=== PATIENT | female | born 2000 | race Caucasian/White ===

== ENCOUNTER 2021-01-02 16:50 | Emergency (ER) | payer BC, SELFPAY ==
[2021-01-02 16:52] VITALS: BP 127/78; PULSE 95; RESP 16; TEMP 36; O2SAT 100
--- NOTE | 2021-01-02 17:11 | ED.GENADULT ---
HPI - General Adult General Chief complaint: Abdominal Pain <iGgi Byers PA-C - Last Filed: 01/02/21 18:58> Stated complaint: pelvic pain <Gigi Byers PA-C - Last Filed: 01/02/21 18:58> Time Seen by Provider: 01/02/21 17:05 <Gigi Byers PA-C - Last Filed: 01/02/21 18:58> Source: patient <Gigi Byers PA-C - Last Filed: 01/02/21 18:58> Mode of arrival: ambulatory <Gigi Byers PA-C - Last Filed: 01/02/21 18:58> Limitations: no limitations <Gigi Byers PA-C - Last Filed: 01/02/21 18:58> History of Present Illness HPI narrative: Patient is a 20-year-old female who presents with postcoital pain noting sharp pain in the pelvic region that radiates posteriorly patient notes she had had a similar occurrence in the past that resolved patient denies any discharge bleeding fever chills nausea vomiting or other complaints presents in no distress has not taken anything for her symptoms does not have gynecology <Gigi Byers PA-C - Last Filed: 01/02/21 18:58> Related Data Allergies/adverse reactions: Allergies Allergy/AdvReac Type Severity Reaction Status Date / Time No Known Allergies Allergy Mild Verified 12/16/19 11:24 <Gigi Byers PA-C - Last Filed: 01/02/21 18:58> Review of Systems Review of Systems: All systems reviewed & are unremarkable except as noted in HPI and below <Gigi Byers PA-C - Last Filed: 01/02/21 18:58> [facility] Social History Social History: Social History (Updated 01/02/21 @ 17:12 by Gigi Byers PA-C) Smoking status: Never smoker <Gigi Byers PA-C - Last Filed: 01/02/21 18:58> Exam Narrative: Exam Narrative: GENERAL: Well-appearing, well-nourished, and in no acute distress. HEAD: Normocephalic, atraumatic. EYES: PERRLA and EOMI. ENT: Nares clear, no rhinorrhea or epistaxis. Mucous membranes moist. CHEST: Clear to auscultation. No respiratory distress. No wheezes rales or rhonchi HEART: Regular rate and rhythm. No murmur heard. Normal peripheral pulses. ABDOMEN: Soft, suprapubic tenderness to palpation, nondistended FEMALE GENITOURINARY: Small amount of old blood in the vault no other abnormalities EXTREMITIES: Normal range of motion. No edema. SKIN: Warm, dry, no rash. NEURO: No focal deficits. Alert and oriented x3. PSYCH: Normal mood and affect. <Gigi Byers PA-C - Last Filed: 01/02/21 18:58> Course Course Emergency Course: Patient in the room no distress no high risk changes in the evaluation will be treated for urinary tract infection patient will be following with gynecology and given reasons to return is felt appropriate for outpatient reevaluation <Gigi Byers PA-C - Last Filed: 01/02/21 18:58> Vital Signs Vital signs: Vital Signs Temperature 96.8 F L 01/02/21 16:52 Pulse Rate 95 01/02/21 16:52 Respiratory Rate 16 01/02/21 16:52 Blood Pressure 127/78 01/02/21 16:52 Pulse Oximetry 100 01/02/21 16:52 Temperature 97.3 F L 01/02/21 19:12 Pulse Rate 89 01/02/21 19:12 Respiratory Rate 19 01/02/21 19:12 Blood Pressure 97/69 L 01/02/21 19:12 Pulse Oximetry 100 01/02/21 19:12 <Gigi Byers PA-C - Last Filed: 01/02/21 18:58> Vital Signs Temperature 96.8 F L 01/02/21 16:52 Pulse Rate 95 01/02/21 16:52 Respiratory Rate 16 01/02/21 16:52 Blood Pressure 127/78 01/02/21 16:52 Pulse Oximetry 100 01/02/21 16:52 Temperature 97.3 F L 01/02/21 19:12 Pulse Rate 89 01/02/21 19:12 Respiratory Rate 19 01/02/21 19:12 Blood Pressure 97/69 L 01/02/21 19:12 Pulse Oximetry 100 01/02/21 19:12 <Mag Swain MD - Last Filed: 01/03/21 09:55> Medical Decision Making MDM Narrative Medical decision making narrative: Patient will follow with gynecology felt appropriate for outpatient reevaluation vaginal cultures were obtained patient will be treated for urinary tract infection and
[2021-01-02 17:35] LABS: Add Urine Microscopic? YES; Appearance Urine Turbid (Clear); Bacteria Urine Trace /hpf; Bilirubin Urine Negative (Negative); Blood Urine 1+ (Negative); Color Urine Yellow (Yellow); Glucose Urine UA Negative (Negative); Ketones Urine Negative (Negative); Leukocyte Esterase Ur Negative LEU/UL (Negative); Mucus Urine Rare /lpf; Nitrate Urine Negative (Negative); Protein Urine 1+ mg/dL (Negative); RBC Urine 0-2 /hpf (0-2); Specific Grav Ur 1.023 (1.001-1.035); Squamous Epithelial Cell Urine Many /hpf (Few); Urobilinogen Urine Negative mg/dL (<2.0); WBC Clumps Urine Present /HPF; WBC Urine 31-50 /hpf
[2021-01-02 19:12] VITALS: BP 97/69; PULSE 89; RESP 19; TEMP 36.3; O2SAT 100
== END 2021-01-02 19:14 | disposition home or self-care (01) ==
PROVIDERS: Emergency Medicine Emergency Medical Services; Emergency Provider General Practice
DX: N39.0 Urinary tract infection, site not specified (principal); R10.9 Unspecified abdominal pain
CPT/HCPCS: 81001; 81025; 87070; 87086; 87088; 87491; 87591; 99283

== ENCOUNTER 2022-04-02 00:23 | Emergency (ER) | payer BC, SELFPAY ==
[2022-04-02 00:26] VITALS: BP 130/79; PULSE 109; RESP 14; TEMP 36.3; O2SAT 100
[2022-04-02 00:44] LABS: Basophils Absolute Auto 0.1 K/mm3 (0.0-0.1); Basophils Percent Auto 0.9 % (0.2-1.2); Eosinophils Absolute Auto 0.2 K/mm3 (0-0.3); Eosinophils Percent Auto 2.2 % (0-4.4); Hematocrit 37.9 % (37.0-47.0); Hemoglobin 11.8 g/dL (12.0-15.0); Immature Granulocyte Absolute 0.02 K/mm3 (0.00-0.031); Immature Granulocyte Percent A 0.3 % (0-0.5); Lymphocytes Absolute Auto 2.53 K/mm3 (0.9-3.2); Lymphocytes Percent Auto 34.3 % (18.3-44.2); Mean Corpuscular HGB Conc 31.1 g/dl (32-36); Mean Corpuscular Hemoglobin 26.5 pg (26-34); Mean Corpuscular Volume 85.2 fl (80-100); Mean Platelet Volume 9.7 fl (7.4-10.4); Monocytes Absolute Auto 0.5 K/mm3 (0.1-0.6); Monocytes Percent Auto 7.3 % (2.6-8.5); Neutrophils Absolute Auto 4.1 K/mm3 (1.3-6.7); Platelet Count Result 300 k/mm3 (150-375); Red Blood Count 4.45 M/mm3 (4.2-5.4); Red Cell Distribution Width 15.6 % (11.5-14.5); White Blood Count 7.4 K/mm3 (4.5-10.0)
[2022-04-02 00:56] LABS: Amorphous Sediment Urine Few; Squamous Epithelial Cell Urine Occasional /hpf (Few); WBC Urine 31-50 /hpf
[2022-04-02 00:56] LABS: Alanine Aminotransferase 22 U/L (6-35); Albumin Level 4.9 g/dL (3.5-5.1); Alkaline Phosphatase 38 U/L (38-126); Anion Gap 10 mmol/L (8-16); Aspartate Amino Transferase 35 U/L (14-36); Bilirubin,Total 0.3 mg/dL (0.2-1.3); Blood Urea Nitrogen 13 mg/dL (7-17); Carbon Dioxide 27 mmol/L (22-30); Chloride 103 mmol/L (98-107); Estimated CRCL calculation 91 ml/min; Estimated Glomerular Filt Rate > 60; Glucose 89 mg/dL (65-110); Lipase 109 U/L (23-300); Potassium 3.8 mmol/L (3.4-5.0); Sodium 140 mmol/L (137-145)
[2022-04-02 00:58] LABS: Add Urine Microscopic? YES; Appearance Urine Cloudy (Clear); Bilirubin Urine Negative (Negative); Blood Urine Trace-Intact (Negative); Color Urine Light Yellow (Yellow); Glucose Urine UA Negative (Negative); Ketones Urine Negative (Negative); Leukocyte Esterase Ur Trace LEU/UL (Negative); Nitrate Urine Negative (Negative); Protein Urine Negative (Negative); Urobilinogen Urine 0.2 mg/dL (<2.0); pH Urine 8.5 (5.0-9.0)
[2022-04-02 03:20] VITALS: BP 124/74; PULSE 93; RESP 16; O2SAT 100
[2022-04-02 03:21] VITALS: PULSE 90; RESP 14; O2SAT 100
--- NOTE | 2022-04-02 03:24 | ED.FEMALEGU ---
HPI - Female Genitourinary General Chief complaint: Abdominal Pain Stated complaint: abdominal pain Time Seen by Provider: 04/02/22 03:22 History of Present Illness HPI Narrative: 21-year-old female with had a UTI in the past presents here with suprapubic pain for the last few hours, denies any dysuria, flank pain, fevers or chills, does endorse nausea. Related Data Allergies Allergy/AdvReac Type Severity Reaction Status Date / Time No Known Allergies Allergy Mild Verified 04/02/22 03:37 Review of Systems Review of Systems: CONST: No fever. HEENT: No sore throat C/V: No chest pain RESP: No cough GI: Reports abdominal pain, nausea : No dysuria. M/S: No joint pain. SKIN: No rash. NEURO: [No focal numbness or weakness] PSYCH: [No depression] [facility] Past Medical History Medical History UTI (urinary tract infection) Social History Social History Smoking status: Never smoker Exam Narrative: EXAMINATION OF ORGAN SYSTEMS/BODY AREAS: Constitutional: Vital signs per nursing GENERAL:[No acute distress, non-toxic appearing.] HEAD: Normal with no signs of head trauma. EYES: EOMI, conjunctiva normal ENT: Hearing grossly intact LUNGS: Nonlabored breathing. HEART: [Regular rate and rhythm] ABD: [Soft], [tender to palpation suprapubic, no CVA tenderness] EXT: Normal range of motion SKIN: [No rashes or lesions.] NEURO: [Alert and oriented x 3. No gross focal sensory or strength deficits.] PSYCH: Normal affect Course Course Emergency Course: 21-year-old female presents with suprapubic pain, vital signs stable, exam shows some Suprapubic tenderness without flank pain, labs show large amount of WBCs in urine consistent with UTI, patient is well-appearing without systemic symptoms and I will start her on Macrobid for cystitis. Return precautions provided and patient stable for discharge home. Vital Signs Vital signs: Vital Signs Temperature 97.3 F L 04/02/22 00:26 Pulse Rate 109 H 04/02/22 00:26 Respiratory Rate 14 04/02/22 00:26 Blood Pressure 130/79 04/02/22 00:26 Pulse Oximetry 100 04/02/22 00:26 Temperature 97.3 F L 04/02/22 00:26 Pulse Rate 84 04/02/22 03:31 Respiratory Rate 14 04/02/22 03:21 Blood Pressure 114/72 04/02/22 03:30 Pulse Oximetry 100 04/02/22 03:31 MDM - Female Genitourinary Lab Data Result diagrams: 04/02/22 00:37 04/02/22 00:37 Labs: Lab Results 04/02/22 04/02/22 04/02/22 Range/Units 00:35 00:37 00:37 WBC 7.4 (4.5-10.0) K/mm3 RBC 4.45 (4.2-5.4) M/mm3 Hgb 11.8 L (12.0-15.0) g/dL Hct 37.9 (37.0-47.0) % MCV 85.2 (80-100) fl MCH 26.5 (26-34) pg MCHC 31.1 L (32-36) g/dl RDW 15.6 H (11.5-14.5) % Plt Count 300 (150-375) k/mm3 MPV 9.7 (7.4-10.4) fl Immature Gran % (Auto) 0.3 (0-0.5) % Neut % (Auto) 55.0 (45.5-73.1) % Lymph % (Auto) 34.3 (18.3-44.2) % Hart % (Auto) 7.3 (2.6-8.5) % Eos % (Auto) 2.2 (0-4.4) % Baso % (Auto) 0.9 (0.2-1.2) % Lymph # (Auto) 2.53 (0.9-3.2) K/mm3 Hart # (Auto) 0.5 (0.1-0.6) K/mm3 Eos # (Auto) 0.2 (0-0.3) K/mm3 Baso # (Auto) 0.1 (0.0-0.1) K/mm3 Abs Immat Gran (auto) 0.02 (0.00-0.031) K/mm3 Absolute Neuts (auto) 4.1 (1.3-6.7) K/mm3 Absolute Nucleated RBC 0.0 (0.0-0.012) K/mm3 Nucleated RBC % 0.0 (0.0-0.2) % Sodium 140 (137-145) mmol/L Potassium 3.8 (3.4-5.0) mmol/L Chloride 103 (98-107) mmol/L Carbon Dioxide 27 (22-30) mmol/L Anion Gap 10 (8-16) mmol/L BUN 13 (7-17) mg/dL Creatinine 0.60 L (0.7-1.0) mg/dL Estim Creat Clear Calc 91 ml/min Estimated GFR > 60 (59 - ) Glucose 89 (65-110) mg/dL Calcium 9.0 (8.4-10.2) mg/dL Total Bilirubin 0.3 (0.2-1.3) mg/dL AST 35 (14-36) U/L ALT 22 (6-35) U/L Alkaline Phosphatase 3
[2022-04-02 03:30] VITALS: BP 114/72; PULSE 85; O2SAT 100
[2022-04-02 03:31] VITALS: PULSE 84; O2SAT 100
[2022-04-02] MEDS: ONDANSETRON HCL ODT 4 MG TABLET PO (03:37)
[2022-04-02 03:58] VITALS: BP 117/70; PULSE 107; RESP 20; TEMP 36.9; O2SAT 100
[2022-04-02] MEDS: NITROFURANTOIN MONOHYD MACROCR 100 MG CAP PO (03:58)
== END 2022-04-02 04:27 | disposition home or self-care (01) ==
PROVIDERS: Emergency Provider Emergency Medicine
DX: N30.01 Acute cystitis with hematuria (principal)
CPT/HCPCS: 36415; 80053; 81001; 81025; 83690; 85025; 87086; 87088; 99283; A9270

== ENCOUNTER 2022-06-22 12:00 | Outpatient (CLI) | payer BC, OTHER, SELFPAY ==
[2022-06-22 12:38] LABS: Basophils Percent Auto 0.6 % (0.2-1.2); Eosinophils Absolute Auto 0.1 K/mm3 (0-0.3); Eosinophils Percent Auto 1.7 % (0-4.4); Hematocrit 35.8 % (37.0-47.0); Hemoglobin 11.3 g/dL (12.0-15.0); Immature Granulocyte Absolute 0.02 K/mm3 (0.00-0.031); Immature Granulocyte Percent A 0.3 % (0-0.5); Lymphocytes Absolute Auto 1.28 K/mm3 (0.9-3.2); Lymphocytes Percent Auto 20.2 % (18.3-44.2); Mean Corpuscular HGB Conc 31.6 g/dl (32-36); Mean Corpuscular Hemoglobin 27.2 pg (26-34); Mean Corpuscular Volume 86.1 fl (80-100); Mean Platelet Volume 9.7 fl (7.4-10.4); Monocytes Absolute Auto 0.4 K/mm3 (0.1-0.6); Neutrophils Absolute Auto 4.4 K/mm3 (1.3-6.7); Neutrophils Percent Auto 70.2 % (45.5-73.1); Platelet Count Result 263 k/mm3 (150-375); Red Blood Count 4.16 M/mm3 (4.2-5.4); Red Cell Distribution Width 15.2 % (11.5-14.5); White Blood Count 6.3 K/mm3 (4.5-10.0)
[2022-06-22 13:32] LABS: HIV 1/2 Ab P24 Ag Result Negative (Negative)
[2022-06-22 13:57] LABS: Hepatitis B Surface Antigen Negative (Negative)
[2022-06-22 16:23] LABS: Rapid Plasma Reagin Non-Reactive (NonReactive)
[2022-06-24 11:24] LABS: CMV IgG Antibody <0.60 U/mL (<0.60)
[2022-06-25 14:54] LABS: Varicella IgG Antibody <135.00 Index (>=165.00)
== END 2022-06-22 12:01 | disposition home or self-care (01) ==
PROVIDERS: Visit Provider Obstetrics & Gynecology
DX: N94.89 Other specified conditions associated with female genital organs and menstrual cycle (principal)
CPT/HCPCS: 36415; 84702; 85025; 86592; 86644; 86703; 86747; 86787; 86850; 86900; 86901; 87086; 87340; G0432

== ENCOUNTER 2022-10-19 08:38 | Outpatient (CLI) | payer BC, OTHER, SELFPAY ==
[2022-10-19 11:03] LABS: Basophils Percent Auto 0.3 % (0.2-1.2); Eosinophils Absolute Auto 0.1 K/mm3 (0-0.3); Hematocrit 31.7 % (37.0-47.0); Hemoglobin 10.2 g/dL (12.0-15.0); Immature Granulocyte Absolute 0.04 K/mm3 (0.00-0.031); Immature Granulocyte Percent A 0.5 % (0-0.5); Lymphocytes Absolute Auto 1.02 K/mm3 (0.9-3.2); Lymphocytes Percent Auto 12.8 % (18.3-44.2); Mean Corpuscular HGB Conc 32.2 g/dl (32-36); Mean Corpuscular Hemoglobin 27.2 pg (26-34); Mean Corpuscular Volume 84.5 fl (80-100); Mean Platelet Volume 9.3 fl (7.4-10.4); Monocytes Absolute Auto 0.4 K/mm3 (0.1-0.6); Monocytes Percent Auto 4.7 % (2.6-8.5); Neutrophils Absolute Auto 6.4 K/mm3 (1.3-6.7); Neutrophils Percent Auto 80.7 % (45.5-73.1); Platelet Count Result 254 k/mm3 (150-375); Red Blood Count 3.75 M/mm3 (4.2-5.4); Red Cell Distribution Width 13.8 % (11.5-14.5); White Blood Count 7.9 K/mm3 (4.5-10.0)
[2022-10-19 11:05] LABS: Glucose 1 Hour PP 50gm Dose 95 mg/dL
== END 2022-10-19 08:39 | disposition home or self-care (01) ==
LOC: ANHLAB 08:41
PROVIDERS: Visit Provider Obstetrics & Gynecology
DX: Z34.90 Encounter for supervision of normal pregnancy, unspecified, unspecified trimester (principal); Z3A.00 Weeks of gestation of pregnancy not specified
CPT/HCPCS: 36415; 82947; 85025

== ENCOUNTER 2022-11-01 16:19 | Outpatient (RCR) | payer BC, OTHER, SELFPAY ==
[2022-11-01 17:13] LABS: Alanine Aminotransferase 14 U/L (6-35); Albumin Level 3.8 g/dL (3.5-5.1); Alkaline Phosphatase 84 U/L (38-126); Anion Gap 5 mmol/L (8-16); Aspartate Amino Transferase 26 U/L (14-36); Bilirubin,Total 0.3 mg/dL (0.2-1.3); Blood Urea Nitrogen 9 mg/dL (7-17); Calcium 8.1 mg/dL (8.4-10.2); Carbon Dioxide 26 mmol/L (22-30); Chloride 99 mmol/L (98-107); Estimated Glomerular Filt Rate > 60; Glucose 119 mg/dL (65-110); Potassium 3.1 mmol/L (3.4-5.0); Sodium 130 mmol/L (137-145)
[2022-11-08 19:41] LABS: Chenodeoxycholic Acid 0.6 umol/L (< OR = 3.9); Cholic Acid <0.5 umol/L (< OR = 2.8); Deoxycholic Acid 1.6 umol/L (< OR = 2.3); Total Bile Acids 2.3 umol/L (< OR = 8.3)
== END 2023-01-30 23:59 | disposition home or self-care (01) ==
LOC: ANHOBOP 16:19
PROVIDERS: Visit Provider Obstetrics & Gynecology
DX: O36.8130 Decreased fetal movements, third trimester, not applicable or unspecified (principal); Z3A.30 30 weeks gestation of pregnancy
CPT/HCPCS: 36415; 59025; 80053; 82542

== ENCOUNTER 2022-12-13 15:23 | Outpatient (CLI) | payer BC, OTHER, SELFPAY ==
[2022-12-13 18:52] LABS: Rubella IgG Antibody 13.4 IU/ML
== END 2022-12-13 15:24 | disposition home or self-care (01) ==
LOC: ANHLAB 15:24
PROVIDERS: Visit Provider Student in an Organized Health Care Education/Training Program
DX: Z34.90 Encounter for supervision of normal pregnancy, unspecified, unspecified trimester (principal)
CPT/HCPCS: 36415; 86762

== ENCOUNTER 2023-01-06 23:41 | Inpatient (IN) | payer BC, OTHER, SELFPAY ==
[2023-01-07] VITALS (225 sets, daily range): BP systolic 102–136; BP diastolic 40–109; PULSE 71–202; RESP 16–18; TEMP 36.7–37.3; O2SAT 84–100; BMI 21.5
[2023-01-07] MEDS: ONDANSETRON INJ 4 MG/2 ML VIAL IV PUSH (03:30)
[2023-01-07] MEDS: LACTATED RINGERS 1,000 ML 125 ML IV CONT ×3 (03:30→06:33)
[2023-01-07] MEDS: fentaNYL CITRATE INJ (*CRX) 100 MCG/2 ML VIAL IV PUSH ×2 (03:35→04:33)
[2023-01-07 03:52] LABS: Basophils Percent Auto 0.3 % (0.2-1.2); Eosinophils Percent Auto 0.1 % (0-4.4); Hematocrit 28.6 % (37.0-47.0); Hemoglobin 8.9 g/dL (12.0-15.0); Immature Granulocyte Absolute 0.04 K/mm3 (0.00-0.031); Immature Granulocyte Percent A 0.4 % (0-0.5); Lymphocytes Absolute Auto 0.96 K/mm3 (0.9-3.2); Lymphocytes Percent Auto 9.6 % (18.3-44.2); Mean Corpuscular HGB Conc 31.1 g/dl (32-36); Mean Corpuscular Hemoglobin 23.8 pg (26-34); Mean Corpuscular Volume 76.5 fl (80-100); Monocytes Absolute Auto 0.4 K/mm3 (0.1-0.6); Monocytes Percent Auto 3.6 % (2.6-8.5); Neutrophils Absolute Auto 8.6 K/mm3 (1.3-6.7); Platelet Count Result 235 k/mm3 (150-375); Red Blood Count 3.74 M/mm3 (4.2-5.4); Red Cell Distribution Width 14.8 % (11.5-14.5)
--- NOTE | 2023-01-07 04:00 | LDADM ---
This patient, Summer Ibrahim, was admitted to Labor/Delivery/Recovery 104 on 01/06/23 at 23:41. Plans for labor, pain management and were discussed with patient. Patient/family oriented to hospital policies and general routines including ID bracelet, bed and alarms, visiting hours, pain management, procedures, bathroom and other care routines, personal items, smoking policy, room service/diet and guest tray routines, infant security routines, and visiting hours. Patient/Family are encouraged to report perceived risks to care and to ask questions if they do not understand what they are told or what they should do. See [facility]BI[facility] for further documentation.
--- NOTE | 2023-01-07 05:03 | WPDANESEPN ---
Anes - Epidural Procedure Note Date/Time: 01/07/23 05:03 Consent: I have discussed with the patient/family/POA, the placement of an epidural catheter and the use of epidural narcotic/local anesthetic for labor analgesia and/or postoperative pain management, including associated potential risks, benefits, complications and side effects. I have discussed alternative methods of labor analgesia and/or postoperative pain management. The patient/family/POA, understand(s) and wish(es) to proceed with epidural narcotic/local anesthetic for labor analgesia and/or postoperative pain management. Time-Out: A pre-procedural Time-Out was completed immediately before starting the procedure and confirmed: Patient Identification, Site, Procedure, Patient Position and the Availability of Requisite Equipment. Clinical Indications: Labor pain Epidural Insertion Note Patient position: sitting Skin prep: chlorhexidine and sterile drape Needle: 17g Tuohy Catheter: 20g Unstyleted Technique: Loss of resistance. Level of insertion: L3/4 Catheter skin deonna (cm): 3 Length in epidural space (cm): 8 Skin anesthesia: lidocaine 1% Test dose: 1.5% Lidocaine with [id number] Epi, negative for subarachnoid Inj and negative for intravascular Inj Time of test dose: 04:45 Observations: tolerated well Complications: none
--- NOTE | 2023-01-07 10:06 | WPDOBADMIT ---
Obstetrics - Admit Note Admission Note: record reviewed. No pertinent additions to the history and/or any subsequent changes in the physical findings that are not consistent with the expected course of the were found. Additions to the history and/or subsequent changes in the physical findings follow. None.
--- NOTE | 2023-01-07 10:24 | PM.OBPNLAB ---
Pain Control Date/time seen: 01/07/23 10:15 Pain control: tolerating well and epidural Pelvic Exam Dilation (cm): 10 Effacement (%): 100 station: 0 Amniotic membrane status: Bulging Contractions Monitor mode: External Contraction pattern: Regular Contraction intensity: Strong/Firm Status status: Category ll Comments: Reassured by moderate variability and accelerations Assessment and Plan Comments: CNM to bedside. Discussed plan of care an option for amniotomy. Discussed risks, benefits, and expectations of breaking water. Patient is agreeable. Amniotomy performed and there was a moderate return of clear amniotic fluid. Patient tolerated procedure well.
--- NOTE | 2023-01-07 11:18 | PM.OBPRVD ---
OB - Delivery Note Procedure Delivery date: 01/07/23 Procedure: Induction method: None Delivery augmentation: Rupture of Membranes Delivery monitor: External FHT and External Uterine Route of delivery: Episiotomy description: None Laceration Description: Vaginal (1st degree, right vaginal wall) and Superficial Delivery repair: vicryl Specimen: No Quantitative Blood Loss (ml): 250 Anesthesia type: Epidural Disposition: Floor Narrative: Patient presented in spontaneous labor. Made quick change to complete dilation. She began pushing with contractions and quickly brought the head to a crown. After the delivery of the head there was excellent restitution and remainder of the infant was easily delivered. A very loose nuchal cord was noted. After 1 minute of life the cord was doubly clamped and cut. A cord segment and cord blood was obtained. A first-degree right vaginal wall laceration was repaired in the usual fashion. There was excellent hemostasis and all delivery counts were correct. [place] Baby Date of : 01/07/23 Time of : 11:50 Weeks of gestation at delivery: 38 Infant gender: Male Weight (pounds): 6 Weight (ounces): 2 presentation: vertex position: Left Occiput Anterior Placenta delivery description: Spontaneous Cord Vessel Description: 3 Vessels, Nuchal Cord, Loose, Clamped/Cut and Delayed Cord Clamping score one minute: 6 score five minutes: 9
--- NOTE | 2023-01-07 11:18 | PM.OBDSVD ---
DS: Admitting Diagnosis Discharge Date 01/09/23 Admitting Diagnosis Spontaneous labor at term DS: Discharge Diagnosis Discharge Diagnosis (1) (normal spontaneous vaginal delivery): Code(s): O80 - Encounter for full-term uncomplicated delivery Status: Acute (2) Patient is a currently breast-feeding mother: Code(s): Z39.1 - Encounter for care and examination of lactating mother Status: Acute OB - DS: Summary Hospital Course Hospital Course: Uncomplicated OB Procedures : Ultrasound OB Procedures Intrapartum: Spontaneous Vag Delivery OB Procedures: : None Peripartum Data Infant Delivery Method: Natural Vaginal Laceration Description: Vaginal - 1st Degree and Superficial Episiotomy description: None complications: none Status at Discharge Overall status at discharge: patient is progressing back to baseline Time Spent with Patient Time attestation: Total time spent providing and/or coordinating discharge services: DS: Data Data Completed and Pending Labs on day of discharge: Labs from last 24 hours 01/07/23 01/07/23 01/07/23 03:39 03:39 03:39 WBC 10.0 RBC 3.74 L Hgb 8.9 L Hct 28.6 L MCV 76.5 L MCH 23.8 L MCHC 31.1 L RDW 14.8 H Plt Count 235 MPV 11.0 H Immature Gran % (Auto) 0.4 Neut % (Auto) 86.0 H Lymph % (Auto) 9.6 L Barry % (Auto) 3.6 Eos % (Auto) 0.1 Baso % (Auto) 0.3 Lymph # (Auto) 0.96 Barry # (Auto) 0.4 Eos # (Auto) 0.0 Baso # (Auto) 0.0 Abs Immat Gran (auto) 0.04 H Absolute Neuts (auto) 8.6 H Absolute Nucleated RBC 0.0 Nucleated RBC % 0.0 RPR Pending Blood Type A Positive Antibody Screen Negative Discharge Plan Discharge Attending physician on discharge: Remington Escalante Discharging Clinician: Remington Escalante Anticipated Discharge Date/Time: 01/09/23 12:19 Patient Disposition: Home, Self-Care Activity: may shower Diet: as tolerated and regular Discharge Instructions: Continue taking your vitamin and any other supplements as previously directed (Examples: Iron, Vitamin D). You may take Tylenol 1000mg over the counter every 6 hours as needed for pain. Do not exceed 4000mg of Tylenol daily. You may continue using tucks pads and dermoplast spray if needed for a few more days. Education: Mom and Baby Guide Given to: Mother Follow-Up: Call your delivering provider's office for an appointment to be seen in: call for appointment Mom and baby [facility] for the follow-up appointment. Appointment Date/Time: January 11, 2023 at 11:00 am What to expect at your follow-up visit: Physical Assessment Call [phone] if you are unable to keep your appointment time. BREAST CARE: * Wear a snug supportive bra. * For engorgement discomfort: Breast Feeding: * Apply warm moist washcloths * Express milk as needed to relieve engorgement * Wear loose clothing * For sore nipples: * Identify correct latch-on * Apply warm moist washcloths before and after nursing * Air dry nipples after nursing * May apply Lansinoh cream to nipples EPISIOTOMY/PERINEAL CARE: * Until bleeding stops, use your kavon bottle after urinating * Change your pad frequently throughout the day * You may take sitz baths several times a day (fill your bathtub with warm water and soak for 20 minutes.) Do NOT bathe in the water * No tub baths until seen by your physician - You may shower ACTIVITY: * Rest as much as possible. * Do not exercise or lift anything heavier than your baby (such as laundry or other children.) * Avoid stairs or driving as much as possible. * Do not put anything into the vagina. No douching, tampons, or sexual activity until seen by physician. NOTIFY PHYSICIAN IF YOU HAVE ANY QUESTIONS OR IF ANY OF THE FOLLOWING SYMPTOMS OC
[2023-01-07] MEDS: OXYTOCIN 30 UNITS/NS 500 ML 30 UNITS/500 ML BAG 125 UNITS IV CONT (13:15)
[2023-01-07] MEDS: WITCH HAZEL 40 PADS 1 PAD TOPICAL (14:16)
[2023-01-07] MEDS: BENZOCAINE 20% AER SPR (*SP) 56 GM CAN 1 SPRAY TOPICAL (14:16)
--- NOTE | 2023-01-07 14:43 | PC.NURSE ---
Patient transferred to post room # 284 via wheelchair accompanied by support person. PT introductions made and plan of care discussed per post , pain management, daily care activities and breast feeding. PT Oriented to unit, room, information board, rooming in, admission packet and security measures. PT and spouse both recipients of such care and no barriers to learning identified at this time. PT received such instructions per one to one discussion, mom baby care guide and demonstrations. Patient verbalizes understanding.
[2023-01-07] MEDS: ACETAMINOPHEN 325 MG TABLET 650 MG PO (15:40)
[2023-01-07] MEDS: DOCUSATE SODIUM 100 MG CAPSULE PO (15:40)
[2023-01-07] MEDS: IBUPROFEN 600 MG TABLET PO (15:41)
[2023-01-08 04:20] VITALS: BP 137/75; PULSE 78; RESP 18; TEMP 36.6; O2SAT 97
[2023-01-08] MEDS: ACETAMINOPHEN 325 MG TABLET 650 MG PO ×3 (04:26→16:56)
[2023-01-08 05:12] LABS: Hematocrit 25.4 % (37.0-47.0); Hemoglobin 7.7 g/dL (12.0-15.0)
--- NOTE | 2023-01-08 07:00 | PC.NURSE ---
PT introductions made and plan of care discussed per post , pain management, breast feeding, daily care activities. PT and fob both recipients of such instructions and no barriers to learning identified at this time. Pt received such instructions per one to one discussion , mom baby care guide and demonstrations this shift. PT verbalized understanding of such care.
--- NOTE | 2023-01-08 08:18 | PM.OBPNVD ---
OB - PN: Subj Subjective Date/time seen: 01/08/23 08:18 Patient comments: no complaints and pain well controlled baby status: doing well OB - PN: Obj Data Labs 01/08/23 04:24 Labs: Laboratory Results - last 24 hr 01/08/23 04:24 Hgb 7.7 L Hct 25.4 L OB - PN A/P Plan day: 1 Plan: routine care Time Spent With Patient Time: Total time spent is greater than 50% in coordination of care (as documented) at patient's floor/unit and/or counseling patient:
[2023-01-08] MEDS: MULTIVIT/MIN/PREN/FOL AC/IRON TABLET 1 TAB PO (09:00)
[2023-01-08 10:30] VITALS: BP 117/78; PULSE 87; RESP 18; TEMP 36.7; O2SAT 100
[2023-01-08] MEDS: IBUPROFEN 600 MG TABLET PO ×2 (10:36→16:56)
[2023-01-08] MEDS: POLYSACCHARIDE IRON COMPLEX 150 MG CAPSULE PO ×2 (10:36→16:57)
[2023-01-08] MEDS: DOCUSATE SODIUM 100 MG CAPSULE PO ×2 (10:36→16:57)
[2023-01-08 20:13] VITALS: BP 119/74; PULSE 86; PULSE 87; RESP 18; TEMP 36.9; O2SAT 100; O2SAT 86
[2023-01-08] MEDS: ESCITALOPRAM OXALATE 5 MG TABLET PO (21:23)
[2023-01-09 08:05] VITALS: BP 117/82; PULSE 93; RESP 16; TEMP 37.1; O2SAT 100
--- NOTE | 2023-01-09 08:45 | PM.OBDSVD ---
DS: Admitting Diagnosis Discharge Date 01/09/23 Admitting Diagnosis intrauterine at term DS: Discharge Diagnosis Discharge Diagnosis (1) Supervision of high risk , unspecified, third trimester: Code(s): O09.93 - Supervision of high risk , unspecified, third trimester Status: Acute OB - DS: Summary OB Procedures : None OB Procedures Intrapartum: Spontaneous Vag Delivery OB Procedures: : None Status at Discharge Functional status at discharge: independent ambulation Overall status at discharge: patient is back to baseline Time Spent with Patient Time attestation: Total time spent providing and/or coordinating discharge services: Time spent: Less than 30 minutes Exam Const: General: comfortable and no acute distress Resp: Effort & Inspection: normal respiratory effort Auscultation: clear to auscultation bilaterally Cardio: Rate: regular rate GI: GI Palp: Yes Soft to palpation Auscultation: normal bowel sounds Other: Fundus firm below umbilicus Psych: Appearance: grossly normal Mental Status: mental status grossly normal Affect: normal affect Discharge Plan Discharge Attending physician on discharge: Remington Escalante Discharging Clinician: Remington Escalante Anticipated Discharge Date/Time: 01/09/23 12:19 Patient Disposition: Home, Self-Care Activity: may shower Diet: as tolerated and regular Discharge Instructions: Continue taking your vitamin and any other supplements as previously directed (Examples: Iron, Vitamin D). You may take Tylenol 1000mg over the counter every 6 hours as needed for pain. Do not exceed 4000mg of Tylenol daily. You may continue using tucks pads and dermoplast spray if needed for a few more days. Patient Instructions: Antibiotic Form Stand Alone Forms: General Discharge Information Follow-up/Referrals: Remington Escalante MD [Physician] - (6 week visit) Discharge Medications: New acetaminophen [Mapap (acetaminophen)] 325 mg Tablet 650 mg PO Q6H PRN (Reason: Mild Pain (1-3) Or Headache) Qty: 30 0RF ibuprofen 600 mg Tablet 600 mg PO Q6H PRN (Reason: Cramping) Qty: 30 0RF Continued escitalopram oxalate [Lexapro] 5 mg tablet 5 mg PO DAILY vit-iron fum-folic ac 65 mg iron- 1 mg tablet 1 tablet PO DAILY Date of admission: 01/06/23 23:41 Primary Care Provider: UNKNOWN,DOCTOR Admitting Provider: Remington Escalante Attending physician on admission: Remington Escalante Condition: Stable
[2023-01-09] MEDS: POLYSACCHARIDE IRON COMPLEX 150 MG CAPSULE PO (09:02)
[2023-01-09] MEDS: MULTIVIT/MIN/PREN/FOL AC/IRON TABLET 1 TAB PO (09:02)
[2023-01-09] MEDS: DOCUSATE SODIUM 100 MG CAPSULE PO (09:03)
[2023-01-09] MEDS: IBUPROFEN 600 MG TABLET PO (09:03)
--- NOTE | 2023-01-09 09:49 | PC.NURSE ---
Patient viewed the discharge video Mother & Baby Care, The First Two Weeks . Patient was given the opportunity and encouraged to ask questions. Patient verbalized understanding of information shared and has been given the mother/baby guide for home reference.
[2023-01-09 10:02] LABS: Rapid Plasma Reagin Non-Reactive (NonReactive)
[2023-01-09] MEDS: ACETAMINOPHEN 325 MG TABLET 650 MG PO (11:11)
--- NOTE | 2023-01-09 16:04 | PC.NURSE ---
[id number] Introductions were made, then Mother led the conversation with her experience and plan to feed her infant so far and her ability to continue with the plan of attempting to breastfeed her feed . Mother has to the left breast using cross cradle and states has fallen asleep. On assessment it is visualized that the is laying there with the nipple at the closed mouth. has had adequate feedings in the last 24 hours and has been bottle fed with formula. meets the outcomes for weight, output and jaundice at this time. Mother states she is confident to continue attempt to breastfeed, she will initiate pumping at home, supplementing as needed for growth and prevention of illness her at home. Encouraged understanding of the benefits of skin to skin (demonstrating unwrapping infant and placing upright on her chest), stimulating with massage touch, changing positions to encourage wakefulness, how to watch for early feeding cues, responsive feeding, feeding on demand (aiming for 8-12 times in 24 hours, about every 2-3 hours), milk production, building/maintaining a milk supply, duration of feeding, signs of adequate intake/output and how to record on the feeding sheet. Reviewed positioning and ear, shoulder, hip alignment, supporting the breast to facilitate a deep latch, asymmetrical latch (off-center), leading with the chin with a big, open, wide gape and body close to mother. Infant was attempted to latch optimally to the right breast in football position. Infant latches, takes a couple of sucks, then stops. Other attempts the infant opens wide, then doesn't draw the breast into the mouth but instead lays there holding the nipple in the mouth. The 's tongue forks slightly with minimal extension. was unable to maintain latch. Nipple care reviewed with optimal latch and good positioning. Reviewed good handwashing when or touching the breast/nipples to prevent infection. Resources used to facilitate learning were used with the tool, mom and baby guide. Mother voiced understanding of skin to skin, stimulating with massage touch, responsive feedings, hand expressed colostrum, talking to infant to encourage if it has been 2 -2.5 hours since the start of the last , to call if infant does not latch, or if there is discomfort with . Resources provided for inpatient/outpatient with the feeding sheet and the mom/baby guide. Reinforced understanding of milk production, transition of milk, signs of adequate intake, transition of stool, prevention/relief of engorgement, responsive watching for feeding cues, the different methods of stimulating infant to breastfeed 2-3 hours after the start of the last feeding, community resources, medication information reviewed per [employer] and when to call a provider using the resource of the mom and baby guide/[facility] website. Encouraged mother to initiate pumping to protect her milk supply and continue to supplement until her milk increases the volume that requires after assessment of the there is concern that infant has not been latching effectively. Mother voiced understanding of the education shared. Reported to the primary RN.
[2023-01-11 11:27] VITALS: BP 113/74; PULSE 93; RESP 18; TEMP 37; O2SAT 99
== END 2023-01-09 13:00 | disposition home or self-care (01) | DRG 807 ==
LOC: ANHLDR 01-07 12:19 → ANHOB2 01-09 10:27 → ANHLDR 01-10 11:06 → ANHOB2 01-10 11:06
PROVIDERS: Admitting Provider Student in an Organized Health Care Education/Training Program; Visit Provider Advanced Practice Midwife
DX: O69.81X0 Labor and delivery complicated by cord around neck, without compression, not applicable or unspecified (principal); Z37.0 Single live birth; Z3A.38 38 weeks gestation of pregnancy; O70.0 First degree perineal laceration during delivery
CPT/HCPCS: 36415; 85014; 85018; 85025; 86592; 86850; 86900; 86901; A9270; J2405; J2590; J2795; J3010; J7120

== ENCOUNTER 2023-07-19 23:57 | Emergency (ER) | payer BC, OTHER, SELFPAY ==
--- NOTE | ~2023-07-19 | CT_ITS ---
CT of the Abdomen and Pelvis: Indication: Abdominal pain Technique: 2.5 mm axial scans were obtained through the abdomen and pelvis following intravenous adm inistration of 100 cc of Omnipaque 350. Dose reduction technique was used on this scan by utilizing a utomated exposure control and iterative reconstruction technique. The dose-length product (DLP) was 1 95.16 mGy-cm. Findings: Scans through the lung bases are unremarkable. Multiple small probable hepatic cysts are present. There is mild periportal edema. Liver measures 21 cm in length. There is probable splenomegaly. The pancreas, gallbladder, adrenals and kidneys are wit hin normal limits. No evidence of aortic aneurysm. No lymphadenopathy. Questionable mild wall thickening of multiple small bowel loops as well as the rectum. No bowel obstr uction. No abscess or free air. Images through the pelvis were performed. Urinary bladder unremarkable. No adnexal mass evident. No a scites. Impression: Possible nonspecific enterocolitis. Correlate clinically. Hepatosplenomegaly with mild, nonspecific, periportal edema and multiple probable hepatic cysts. Reviewed, dictated and finalized at [facility]. Impression: Possible nonspecific enterocolitis. Correlate clinically. Hepatosplenomegaly with mild, nonspecific, periportal edema and multiple probab le hepatic cysts.
[2023-07-19 23:57] VITALS: BP 109/68; PULSE 84; RESP 16; TEMP 36.2; O2SAT 100
[2023-07-20 00:30] VITALS: BP 102/69; PULSE 85; RESP 13; TEMP 36.5; O2SAT 100
--- NOTE | 2023-07-20 01:23 | ED.ABDPAIN ---
HPI - Abdominal Pain General Chief Complaint: Abdominal Pain <Hannah Pandya PA-C - Last Filed: 07/20/23 03:35> Stated Complaint: abdominal/back pain <Hannah Pandya PA-C - Last Filed: 07/20/23 03:35> Time Seen by Provider: 07/20/23 00:51 <Hannah Pandya PA-C - Last Filed: 07/20/23 03:35> History of Present Illness HPI narrative: 23-year-old female, G1, P1, reports for evaluation for generalized abdominal pain and diarrhea x4 days. Patient reports having 4-5 episodes of watery diarrhea since the onset of symptoms as well as generalized abdominal pain that radiates around her flanks. She reports developing nausea today with 1 episode of emesis. LMP was March 2022 prior to the of her child. She is currently breast-feeding and has not had a return of her period. She denies chest pain or shortness of breath, dysuria or hematuria, mucus or blood in her stool, hematemesis or coffee-ground emesis, melena, fever, body aches or chills. She denies recent travel or known sick contacts. <SILVIA Chavarria Last Filed: 07/20/23 03:35> Related Data Home Medications: Home Medications Medication Instructions Recorded Confirmed vitamins-iron fumarate 65 1 tablet PO DAILY 06/17/22 05/16/23 mg iron-folic acid 1 mg tablet <SILVIA Chavarria Last Filed: 07/20/23 03:35> Allergies/Adverse Reactions: Allergies Allergy/AdvReac Type Severity Reaction Status Date / Time No Known Allergies Allergy Mild Verified 05/16/23 14:42 <SILVIA Chavarria Last Filed: 07/20/23 03:35> Review of Systems Review of Systems: CONSTITUTIONAL: Denies fever, chills EYES: Denies visual changes, redness, or discharge. ENT: Denies rhinorrhea, congestion, sore throat, or otalgia. CARDIOVASCULAR: Denies chest pain, palpitations, or edema. RESPIRATORY: Denies cough or dyspnea. GASTROINTESTINAL: See HPI GENITOURINARY: Denies dysuria or hematuria. SKIN: Denies rash or itching. MUSCULOSKELETAL: Denies back pain, joint pain, or myalgia. NEUROLOGIC: Denies headache, numbness, dizziness, or weakness. PSYCHIATRIC: Denies anxiety or depression. <Hannah Pandya PA-C - Last Filed: 07/20/23 03:35> [facility] Past Medical History Medical History: Medical History ADHD Migraines Panic attacks Suppression of menstruation UTI (urinary tract infection) <Hannah Pandya PA-C - Last Filed: 07/20/23 03:35> Surgical History Surgical History: Surgical History H/O wisdom tooth extraction <Hannah Pandya PA-C - Last Filed: 07/20/23 03:35> Family History Family History: Family History Other Breast cancer Hypertension <Hannah Pandya PA-C - Last Filed: 07/20/23 03:35> Social History Social History: Social History Smoking status: Never smoker Second hand tobacco smoke exposure: No Alcohol intake: never Substance use: never Substance use type: does not use Lack of Transportation: No Lack of Food: Never True Current Housing: I Have Housing Concerned About Future Housing: No Difficulty Paying Gas/Electric Bills: No Difficulty Paying for Meds: No Currently Unemployed: No Education: High School Diploma/GED Difficulty w/ Childcare or Family Care: No Living arrangements: other Additional living arrangements comments: 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 Gender identity (if verbalized by the patient): Female Sexual Orientation (if Verbalized by the Patient): Straight or Heterosexual Spiritual care concerns: No <Hannah Pandya PA-C - Last Filed: 07/20/23 03:35> Exam Narrative: GENERAL: Well-appearing, in no acute distress.
[2023-07-20 01:25] LABS: Basophils Percent Auto 0.6 % (0.2-1.2); Eosinophils Percent Auto 0.8 % (0-4.4); Hematocrit 36.6 % (37.0-47.0); Hemoglobin 11.4 g/dL (12.0-15.0); Immature Granulocyte Absolute 0.01 K/mm3 (0.00-0.031); Immature Granulocyte Percent A 0.2 % (0-0.5); Lymphocytes Absolute Auto 0.84 K/mm3 (0.9-3.2); Lymphocytes Percent Auto 16.2 % (18.3-44.2); Mean Corpuscular HGB Conc 31.1 g/dl (32-36); Mean Corpuscular Hemoglobin 25.3 pg (26-34); Mean Corpuscular Volume 81.3 fl (80-100); Mean Platelet Volume 9.2 fl (7.4-10.4); Monocytes Absolute Auto 0.5 K/mm3 (0.1-0.6); Monocytes Percent Auto 8.7 % (2.6-8.5); Neutrophils Absolute Auto 3.8 K/mm3 (1.3-6.7); Neutrophils Percent Auto 73.5 % (45.5-73.1); Platelet Count Result 323 k/mm3 (150-375); Red Cell Distribution Width 14.3 % (11.5-14.5); White Blood Count 5.2 K/mm3 (4.5-10.0)
[2023-07-20 01:38] LABS: Alanine Aminotransferase 17 U/L (6-35); Albumin Level 4.5 g/dL (3.5-5.1); Alkaline Phosphatase 59 U/L (38-126); Anion Gap 9 mmol/L (8-16); Aspartate Amino Transferase 31 U/L (14-36); Bilirubin,Total 0.4 mg/dL (0.2-1.3); Blood Urea Nitrogen 22 mg/dL (7-17); Calcium 8.7 mg/dL (8.4-10.2); Carbon Dioxide 29 mmol/L (22-30); Chloride 103 mmol/L (98-107); Estimated CRCL calculation 88 ml/min; Estimated Glomerular Filt Rate > 60; Glucose 93 mg/dL (65-110); Lipase 80 U/L (23-300); Potassium 3.7 mmol/L (3.4-5.0); Sodium 141 mmol/L (137-145)
[2023-07-20] MEDS: SODIUM CHLORIDE 0.9% IV 1,000 ML 999 ML IV CONT ×2 (01:39→03:36)
[2023-07-20] MEDS: ONDANSETRON INJ 4 MG/2 ML VIAL IV PUSH (01:39)
[2023-07-20 03:14] VITALS: BP 107/66; PULSE 93; RESP 15; O2SAT 99
--- NOTE | 2023-07-20 03:14 | PC.NURSE ---
Pt attempted to provide stool sample at this, pt unable to provide sample.
[2023-07-20 03:23] LABS: Appearance Urine Clear (Clear); Bilirubin Urine Negative (Negative); Blood Urine Negative (Negative); Color Urine Yellow (Yellow); Glucose Urine UA Negative (Negative); Ketones Urine 1+ mg/dL (Negative); Leukocyte Esterase Ur Negative LEU/UL (Negative); Nitrate Urine Negative (Negative); Protein Urine Negative (Negative); Urobilinogen Urine 0.2 mg/dL (<2.0); pH Urine 5.5 (5.0-9.0)
[2023-07-20 03:25] LABS: Specific Grav Ur 1.093 (1.001-1.035)
[2023-07-20 03:26] LABS: Add Urine Microscopic? YES
--- NOTE | 2023-07-20 04:15 | PC.NURSE ---
This RN took patient report from RULA Leroy. This RN assumed care of patient.
[2023-07-20 06:30] VITALS: BP 102/7; PULSE 77; RESP 18; O2SAT 100
== END 2023-07-20 06:30 | disposition home or self-care (01) ==
PROVIDERS: Emergency Provider Emergency Medicine; PCP Family Medicine Sports Medicine
DX: K52.9 Noninfective gastroenteritis and colitis, unspecified (principal)
CPT/HCPCS: 36415; 74177; 80053; 81001; 81025; 83690; 85025; 96361; 96374; 99284; J2405; J7030; Q9967

== ENCOUNTER 2024-06-01 11:08 | Emergency (ER) | payer OTHER, SELFPAY ==
[2024-06-01 11:11] VITALS: BP 110/78; PULSE 87; RESP 18; TEMP 36.9; O2SAT 100
[2024-06-01 11:36] LABS: Basophils Percent Auto 0.5 % (0.2-1.2); Eosinophils Percent Auto 0.2 % (0-4.4); Hemoglobin 11.8 g/dL (12.0-15.0); Immature Granulocyte Absolute 0.02 K/mm3 (0.00-0.031); Immature Granulocyte Percent A 0.4 % (0-0.5); Lymphocytes Absolute Auto 0.82 K/mm3 (0.9-3.2); Lymphocytes Percent Auto 14.8 % (18.3-44.2); Mean Corpuscular HGB Conc 32.8 g/dl (32-36); Mean Corpuscular Hemoglobin 26.7 pg (26-34); Mean Corpuscular Volume 81.4 fl (80-100); Mean Platelet Volume 9.5 fl (7.4-10.4); Monocytes Absolute Auto 0.2 K/mm3 (0.1-0.6); Monocytes Percent Auto 3.1 % (2.6-8.5); Neutrophils Absolute Auto 4.5 K/mm3 (1.3-6.7); Platelet Count Result 273 k/mm3 (150-375); Red Blood Count 4.42 M/mm3 (4.2-5.4); Red Cell Distribution Width 14.9 % (11.5-14.5); White Blood Count 5.5 K/mm3 (4.5-10.0)
[2024-06-01] MEDS: SODIUM CHLORIDE 0.9% IV 1,000 ML 999 ML IV CONT ×2 (11:36→12:45)
[2024-06-01] MEDS: diphenhydrAMINE HCl INJ 50 MG/ML VIAL 25 MG IV PUSH (11:37)
[2024-06-01] MEDS: PROCHLORPERAZINE EDISYLATE 10 MG/2 ML VIAL IV PUSH (11:37)
--- NOTE | 2024-06-01 11:39 | ED.GENADULT ---
HPI - General Adult General Chief complaint: Nausea/Vomiting/Diarrhea Stated complaint: n/v Time Seen by Provider: 06/01/24 11:12 History of Present Illness HPI narrative: patient 23-year-old female presents emergency department with chief complaint of nausea vomiting. Patient reports a she has not been able to eat or drink anything since she ate at a [email or web address] restaurant last night said multiple bouts of vomiting and not able to keep anything down patient denies fever reports that she feels tingly Anusha her hands feet the patient states that she has no prior intra-abdominal surgeries Related Data Home Medications Medication Instructions Recorded Confirmed vitamins-iron fumarate 65 1 tablet PO DAILY 06/17/22 05/16/23 mg iron-folic acid 1 mg tablet Allergies Allergy/AdvReac Type Severity Reaction Status Date / Time No Known Allergies Allergy Mild Verified 06/01/24 11:18 Review of Systems Review of Systems: A 10 system review of systems was completed on the patient and is negative except for what is stated in the HPI. Nursing and ancillary documentation was reviewed. [facility] Past Medical History Medical History ADHD Migraines Panic attacks Suppression of menstruation UTI (urinary tract infection) Surgical History Surgical History H/O wisdom tooth extraction Family History Family History Other Breast cancer Hypertension Social History Social History Smoking status: Never smoker Second hand tobacco smoke exposure: No Alcohol intake: never Substance use: never Substance use type: does not use Lack of Transportation: No Lack of Food: Never True Current Housing: I Have Housing Concerned About Future Housing: No Difficulty Paying Gas/Electric Bills: No Difficulty Paying for Meds: No Currently Unemployed: No Education: High School Diploma/GED Difficulty w/ Childcare or Family Care: No Living arrangements: other Additional living arrangements comments: 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 Gender identity (if verbalized by the patient): Female Sexual Orientation (if Verbalized by the Patient): Straight or Heterosexual Spiritual care concerns: No Course Vital Signs Vital signs: Vital Signs Temperature 36.9 C 06/01/24 11:11 Pulse Rate 87 06/01/24 11:11 Respiratory Rate 18 06/01/24 11:11 Blood Pressure 110/78 06/01/24 11:11 Pulse Oximetry 100 06/01/24 11:11 Oxygen Delivery Room Air 06/01/24 11:11 Temperature 36.9 C 06/01/24 11:11 Pulse Rate 87 06/01/24 11:11 Respiratory Rate 18 06/01/24 11:11 Blood Pressure 110/78 06/01/24 11:11 Pulse Oximetry 100 06/01/24 11:11 Oxygen Delivery Room Air 06/01/24 11:11 Medical Decision Making MDM Narrative Medical decision making narrative: differential diagnosis includes gastroenteritis, UTI, colitis, diverticulitis. The patient is exam is nonfocal abdomen was nontender laboratory studies were obtained on the patient showed a normal CBC CMP showed normal renal function to liver enzymes were normal lipase was normal urinalysis showed no evidence UTI patient received 2 L of normal saline boluses and received Zofran the patient is feeling much better at this time and will be discharged home Vital Signs Vital Signs: Vital Signs Temperature 36.9 C 06/01/24 11:11 Pulse Rate 87 06/01/24 11:11 Respiratory Rate 18 06/01/24 11:11 Blood Pressure 110/78 06/01/24 11:11 Pulse Oximetry 100 06/01/24 11:11 Oxygen Delivery Room Air 06/01/24 11:11 Temperature 36.9 C 06/01/24 11:11 Pulse Rate 87 06/01/24 11:11 Respiratory Rate 18 07
[2024-06-01 11:46] LABS: Alanine Aminotransferase 20 U/L (6-35); Albumin Level 5.2 g/dL (3.5-5.1); Alkaline Phosphatase 50 U/L (38-126); Anion Gap 15 mmol/L (4-12); Aspartate Amino Transferase 32 U/L (14-36); Bilirubin,Total 0.5 mg/dL (0.2-1.3); Blood Urea Nitrogen 11 mg/dL (7-17); Calcium 9.5 mg/dL (8.4-10.2); Carbon Dioxide 23 mmol/L (22-30); Chloride 106 mmol/L (98-107); Estimated CRCL calculation 79 ml/min; Estimated Glomerular Filt Rate > 60; Glucose 90 mg/dL (65-110); Lipase 74 U/L (23-300); Potassium 3.6 mmol/L (3.4-5.0); Sodium 144 mmol/L (137-145)
[2024-06-01 12:40] LABS: Appearance Urine Clear (Clear); Bacteria Urine None Seen /hpf; Bilirubin Urine Negative (Negative); Blood Urine Negative (Negative); Color Urine Yellow (Yellow); Glucose Urine UA Negative (Negative); Ketones Urine Negative (Negative); Leukocyte Esterase Ur Trace LEU/UL (Negative); Nitrate Urine Negative (Negative); Non Pathogenic Casts 0-2; Protein Urine 1+ mg/dL (Negative); RBC Urine 0-2 /hpf (0-2); Specific Grav Ur 1.018 (1.001-1.035); Squamous Epithelial Cell Urine Occasional /hpf (Few); WBC Urine 0-5 /hpf (0-3); pH Urine >=9.0 (5.0-9.0)
[2024-06-01 12:42] LABS: Add Urine Microscopic? YES
[2024-06-01 14:11] VITALS: BP 115/80; PULSE 80; RESP 18; O2SAT 100
== END 2024-06-01 14:13 | disposition home or self-care (01) ==
PROVIDERS: Emergency Provider Emergency Medicine; PCP Family Medicine Sports Medicine
DX: R11.2 Nausea with vomiting, unspecified (principal); F90.9 Attention-deficit hyperactivity disorder, unspecified type; Z87.440 Personal history of urinary (tract) infections; Z79.899 Other long term (current) drug therapy
CPT/HCPCS: 36415; 80053; 81001; 81025; 83690; 83735; 85025; 96361; 96374; 96375; 99284; J0780; J1200; J7030